=== PATIENT | male | born 1995 | race Caucasian/White ===

== ENCOUNTER 2018-01-04 08:00 | Outpatient (CLI) | payer MEDICAID, OTHER ==
[2018-01-04 12:41] LABS: BASOPHILS # (AUTO) 0.1 10^3/uL (0.0-0.1); BASOPHILS % (AUTO) 1.1 %; EOSINOPHILS # (AUTO) 0.5 10^3/uL (0.0-0.7); EOSINOPHILS % (AUTO) 10.6 %; HGB - HEMOGLOBIN 14.9 g/dL (14.0-18.0); LYMPHOCYTES # (AUTO) 1.3 10^3/uL (1.5-3.5); LYMPHOCYTES % (AUTO) 26.8 %; MEAN CORPUSCULAR HEMOGLOBIN 33.2 pg (27.0-31.0); MEAN CORPUSCULAR HGB CONC 33.4 g/dL (32.0-36.0); MEAN CORPUSCULAR VOLUME 99.3 fL (80.0-94.0); MEAN PLATELET VOLUME 7.3 fL (7.4-11.4); MONOCYTES # (AUTO) 0.2 10^3/uL (0.0-1.0); MONOCYTES % (AUTO) 5.2 %; NEUTROPHILS # (AUTO) 2.7 10^3/uL (1.5-6.6); NEUTROPHILS % (AUTO) 56.3 %; PLT - PLATELET COUNT 206 10^3/uL (130-450); RED CELL DISTRIBUTION WIDTH 12.6 % (12.0-15.0); WHITE BLOOD COUNT 4.8 x10^3/uL (4.8-10.8)
[2018-01-04 13:02] LABS: CALCIUM 9.3 mg/dL (8.5-10.3); CREATININE 0.8 mg/dL (0.6-1.2)
== END 2018-01-04 08:01 | disposition home or self-care (01) ==
LOC: LAB.N 08:00
PROVIDERS: ATTEND Physician Assistant Medical
DX: R11.10 Vomiting, unspecified (principal); R12 Heartburn
CPT/HCPCS: 36415; 80048; 85025

== ENCOUNTER 2018-01-18 08:00 | Outpatient (CLI) | payer OTHER | END 2018-01-18 08:01 | LOC: LAB.R 08:00 | PROVIDERS: ATTEND Physician Assistant Medical | DX: R10.13 Epigastric pain (principal); R11.10 Vomiting, unspecified; R12 Heartburn | CPT/HCPCS: 83013 ==

== ENCOUNTER 2018-01-31 06:57 | Day surgery (SDC) | payer OTHER ==
[2018-01-31] MEDS ORDERED: MIDAZOLAM 2 MG/2 ML VIAL IVP ONE (06:58)
[2018-01-31] MEDS ORDERED: fentaNYL 250 MCG/5 ML VIAL IVP ONE (06:58)
[2018-01-31] MEDS ORDERED: LIDO GARGLE 30 ML BOTTLE ONE (07:09)
[2018-01-31] MEDS ORDERED: LACTATED RINGERS 1,000 ML IV ONE (07:21)
[2018-01-31] MEDS ORDERED: LIDO GARGLE 30 ML BOTTLE PO ONE (08:26)
[2018-01-31] MEDS ORDERED: ONDANSETRON ODT 4 MG TABLET ONE (09:43)
[2018-01-31 10:04] VITALS: BP 114/81
== END 2018-01-31 06:58 | disposition home or self-care (01) ==
LOC: SDS 06:57
PROVIDERS: ATTEND Surgery
PROC: 0DB68ZX Excision of Stomach, Via Natural or Artificial Opening Endoscopic, Diagnostic (ICD-10-PCS; 2018-01-31)
PROC: 0DB98ZX Excision of Duodenum, Via Natural or Artificial Opening Endoscopic, Diagnostic (ICD-10-PCS; principal; 2018-01-31 08:30)
DX: R11.10 Vomiting, unspecified (principal); R10.9 Unspecified abdominal pain; K29.50 Unspecified chronic gastritis without bleeding; K21.9 Gastro-esophageal reflux disease without esophagitis
CPT/HCPCS: 43239; A9270; J3010; J7120; Q0162; 88305